=== PATIENT | female | born 1965 | race Caucasian/White ===

== ENCOUNTER 2021-03-30 11:35 | Outpatient (CLI) | payer OTHER, SELFPAY ==
--- NOTE | ~2021-03-30 | XR_ITS ---
XR hip LT min 2V DATE: 03/30/2021 11:59 INDICATION: Left hip pain. Metastatic breast cancer. TECHNIQUE: AP and lateral views of left hip COMPARISON: None FINDINGS: There is prominent degenerative disc disease at L4-5 and L5-S1. Mild osteitis pubis. The left sacroiliac joint is intact. No fracture or dislocation, avascular necrosis or bone destruction of the left hip. Left hip joint sp ronel appears well preserved. IMPRESSION: No significant abnormality of the left hip Mild osteitis pubis Degenerative disc disease at L4-5 and L5-S1 Reviewed, dictated and finalized at location B.
== END 2021-03-30 11:36 | disposition home or self-care (01) ==
LOC: ANHIMG 11:42
PROVIDERS: PCP Internal Medicine; Visit Provider Internal Medicine Medical Oncology
DX: C50.919 Malignant neoplasm of unspecified site of unspecified female breast (principal); M86.8X8 Other osteomyelitis, other site; M51.36 Other intervertebral disc degeneration, lumbar region
CPT/HCPCS: 73502